=== PATIENT | female | born 1950 | race Two or more races ===

== ENCOUNTER 2024-09-18 13:54 | Emergency (ER) | payer OTHER ==
[~2024-09-18] VITALS: Ht 165.1 cm; Wt 75.7 kg
[2024-09-18] MEDS ORDERED: METFORMIN HCL1000 M3 PO (15:28)
[2024-09-18] MEDS ORDERED: GLIPIZIDE XL10 MG PO (15:28)
== END 2024-09-18 18:31 | disposition home or self-care (01) ==
LOC: ER 13:54
DX: R22.2 Localized swelling, mass and lump, trunk (principal); Z88.0 Allergy status to penicillin